=== PATIENT | male | born 1965 ===

== ENCOUNTER 2023-09-27 06:31 | Day surgery (SDC) | payer BC, SELFPAY ==
[2023-09-27 08:07] VITALS: BP 150/97
[2023-09-27] MEDS: CELEBREX 200 MG PO (08:16)
[2023-09-27] MEDS: NORMOSOL-R 1000 IV (08:16)
[2023-09-27] MEDS: TYLENOL 1000 MG PO (08:16)
[2023-09-27 11:45] VITALS: BP 122/79; BP 150/97
[2023-09-27 12:40] VITALS: BP 135/96
[2023-09-27 13:00] VITALS: BP 132/90
[2023-09-27 13:25] VITALS: BP 135/92
== END 2023-09-27 13:42 | disposition home or self-care (01) ==
LOC: SDS 06:31
PROVIDERS: ATTENDING PHYSICIAN Orthopaedic Surgery Hand Surgery
DX: S46.012A Strain of muscle(s) and tendon(s) of the rotator cuff of left shoulder, initial encounter (principal); X58.XXXA Exposure to other specified factors, initial encounter; M25.712 Osteophyte, left shoulder; M75.42 Impingement syndrome of left shoulder
CPT/HCPCS: 29827; 29826; C1713